=== PATIENT | female | born 1990 | race Caucasian/White ===

== ENCOUNTER 2016-10-25 20:00 | Emergency (ER) | payer OTHER ==
[~2016-10-25 20:00] MED LIST: BENADRYL ALLERG25 M2 PO; DIASTAT ACUDIA1 EACH RC; KEPPRA 500MG500 MG PO
[2016-10-26 10:00] VITALS: BP 100/66
== END 2016-10-26 12:58 | disposition home or self-care (01) ==
LOC: ED 20:00
DX: G40.309 Generalized idiopathic epilepsy and epileptic syndromes, not intractable, without status epilepticus (principal)
CPT/HCPCS: Q2009

== ENCOUNTER 2016-11-13 23:10 | Emergency (ER) | payer OTHER ==
[2016-11-13] MEDS ORDERED: KEPPRA1000 MG PO (23:16)
[2016-11-13] MEDS ORDERED: DIAZEPAM RECTAL10 MG REC (23:59)
== END 2016-11-14 00:10 | disposition home or self-care (01) ==
LOC: ED 23:10
DX: G40.409 Other generalized epilepsy and epileptic syndromes, not intractable, without status epilepticus (principal)

== ENCOUNTER 2016-12-29 21:42 | Emergency (ER) | payer OTHER ==
[~2016-12-29 21:42] MED LIST changes: +DIAZEPAM RECTAL10 MG REC; +KEPPRA1000 MG PO
[2016-12-29] MEDS ORDERED: FOLIC ACID1 MG PO (21:51)
[2016-12-30] MEDS ORDERED: SEPTRA DS 8001 TAB PO (00:03)
[2016-12-30] MEDS ORDERED: CYCLOBENZAPRINE10 M1 PO (00:03)
[2016-12-30 00:33] VITALS: BP 114/67
== END 2016-12-30 00:33 | disposition home or self-care (01) ==
LOC: ED 21:42
DX: S16.1XXA Strain of muscle, fascia and tendon at neck level, initial encounter (principal); X58.XXXA Exposure to other specified factors, initial encounter; N12 Tubulo-interstitial nephritis, not specified as acute or chronic
CPT/HCPCS: J1100; J1885; J2405

== ENCOUNTER 2017-01-01 06:13 | Emergency (ER) | payer OTHER ==
[~2017-01-01 06:13] MED LIST changes: +CYCLOBENZAPRINE10 M1 PO; +FOLIC ACID1 MG PO; +SEPTRA DS 8001 TAB PO
[2017-01-01] MEDS ORDERED: KETOROLAC10 MG PO (08:48)
[2017-01-01 09:25] VITALS: BP 95/54
== END 2017-01-01 09:25 | disposition home or self-care (01) ==
LOC: ED 06:13
DX: K59.00 Constipation, unspecified (principal)
CPT/HCPCS: J1885; J2270; J2405; J7030

== ENCOUNTER 2017-01-03 11:33 | Emergency (ER) | payer OTHER ==
[~2017-01-03 11:33] MED LIST changes: +KETOROLAC10 MG PO
[2017-01-03] MEDS ORDERED: NORCO 325 MG-51 TAB PO ×2 (14:55→14:56)
[2017-01-03] MEDS ORDERED: LEVAQUIN 5500 MG/TA1 PO ×2 (14:55→14:56)
[2017-01-03 15:45] VITALS: BP 111/82
== END 2017-01-03 15:45 | disposition home or self-care (01) ==
LOC: ED 11:33
DX: J18.9 Pneumonia, unspecified organism (principal); N12 Tubulo-interstitial nephritis, not specified as acute or chronic; M79.1 Myalgia; Z91.14 Patient's other noncompliance with medication regimen; R11.0 Nausea; T40.4X5A Adverse effect of other synthetic narcotics, initial encounter
CPT/HCPCS: J0595; Q9967

== ENCOUNTER → 2017-01-28 | Outpatient (CLI) | payer OTHER ==
[2017-01-03 15:45] VITALS: BP 111/82
[~2017-01-28] MED LIST changes: +LEVAQUIN 5500 MG/TA1 PO; +NORCO 325 MG-51 TAB PO
== END ==
LOC: LAB 10:10
DX: D64.9 Anemia, unspecified (principal); K62.5 Hemorrhage of anus and rectum

== ENCOUNTER → 2017-01-29 | Outpatient (CLI) | payer OTHER ==
[2017-01-03 15:45] VITALS: BP 111/82
== END ==
LOC: LAB 11:31
DX: J03.80 Acute tonsillitis due to other specified organisms (principal)

== ENCOUNTER → 2017-02-23 | Outpatient (CLI) | payer OTHER | LOC: LAB 13:11 | DX: N76.0 Acute vaginitis (principal); A49.01 Methicillin susceptible Staphylococcus aureus infection, unspecified site | CPT/HCPCS: Q0111 ==

== ENCOUNTER 2017-03-04 00:59 | Emergency (ER) | payer OTHER ==
[~2017-03-04] VITALS: Ht 167.6 cm; Wt 79.5 kg
[2017-03-04 07:07] VITALS: BP 112/63
== END 2017-03-04 07:07 | disposition home or self-care (01) ==
LOC: ED 00:59
DX: G40.409 Other generalized epilepsy and epileptic syndromes, not intractable, without status epilepticus (principal); T42.6X6A Underdosing of other antiepileptic and sedative-hypnotic drugs, initial encounter; Z91.138 Patient's unintentional underdosing of medication regimen for other reason; B37.3 Candidiasis of vulva and vagina
CPT/HCPCS: J2060; J2405; J7030

== ENCOUNTER → 2017-03-05 | Outpatient (CLI) | payer OTHER ==
[2017-03-04 07:07] VITALS: BP 112/63
== END ==
LOC: LAB 11:12
DX: G40.909 Epilepsy, unspecified, not intractable, without status epilepticus (principal); D50.8 Other iron deficiency anemias